=== PATIENT | female | born 1985 | race Caucasian/White ===

== ENCOUNTER 2020-07-29 23:43 | Emergency (ER) | payer OTHER ==
[~2020-07-29] VITALS: Ht 149.9 cm; Wt 50.8 kg
[2020-07-30] MEDS ORDERED: CHLORDIAZEPOXIDE HCL 10 MG CAP PO ONE (00:15)
[2020-07-30 00:17] LABS: BASOPHILS % 0.4 % (0.0-1.0); EOSINOPHILS # (AUTO) 0.1 (0.0-0.4); HEMATOCRIT 36.3 % (34.2-44.1); LYMPHOCYTES # (AUTO) 1.2 (1.0-3.2); LYMPHOCYTES % 23.8 % (18.0-39.1); MEAN CORPUSCULAR HEMOGLOBIN 29.6 pg (28-32); MEAN CORPUSCULAR HGB CONC 33.1 g/dL (31-35); MEAN CORPUSCULAR VOLUME 89.6 fL (81-99); MONOCYTES # (AUTO) 0.5 (0.2-0.8); MONOCYTES % 8.8 % (4.4-11.3); NEUTROPHILS # (AUTO) 3.3 (2.1-6.9); NEUTROPHILS % 64.8 % (38.7-80.0); PLATELET COUNT 171 x10e3/uL (140-360); RED BLOOD COUNT 4.05 x10e6/uL (3.6-5.1); RED CELL DISTRIBUTION WIDTH 13.7 % (11.7-14.4)
[2020-07-30 00:30] LABS: ALANINE AMINOTRANSFERASE 54 IU/L (0-55); ALBUMIN 3.6 g/dL (3.5-5.0); ALBUMIN/GLOBULIN RATIO 1.2 (0.8-2.0); ALKALINE PHOSPHATASE 72 IU/L (40-150); ANION GAP 22.7 mmol/L (8-16); BLOOD UREA NITROGEN < 5 mg/dL (7-26); BUN/CREATININE RATIO 8 (6-25); CALCIUM 8.6 mg/dL (8.4-10.2); CARBON DIOXIDE 19 mmol/L (22-29); CHLORIDE 98 mmol/L (98-107); CREATINE KINASE 195 IU/L (29-168); CREATININE, SERUM 0.66 mg/dL (0.57-1.11); EST GLOMERULAR FILTRATION RATE > 60 ML/MIN (60-); GLUCOSE 183 mg/dL (74-118); SODIUM 137 mmol/L (136-145)
[2020-07-30] MEDS ORDERED: CHLORDIAZEPOXIDE HCL 25 MG CAP PO ONE (00:30)
[2020-07-30] MEDS ORDERED: SODIUM CHLORIDE 0.9% 1000ML 1,000 ML IV ONE ×2 (00:30→00:45)
[2020-07-30 00:31] LABS: POTASSIUM 2.7 mmol/L (3.5-5.1)
[2020-07-30] MEDS ORDERED: POTASSIUM CHLORIDE 10MEQ EA PO ONE (00:45)
[2020-07-30] MEDS ORDERED: POTASSIUM CHLORIDE 10MEQ/100ML 100 ML IV ONE (00:45)
[2020-07-30 03:18] LABS: BLOOD UREA NITROGEN < 5 mg/dL (7-26); CALCIUM 7.2 mg/dL (8.4-10.2); CARBON DIOXIDE 25 mmol/L (22-29); CHLORIDE 108 mmol/L (98-107); CREATININE, SERUM 0.51 mg/dL (0.57-1.11); EST GLOMERULAR FILTRATION RATE > 60 ML/MIN (60-); GLUCOSE 79 mg/dL (74-118); SODIUM 142 mmol/L (136-145)
[2020-07-30 03:19] LABS: BUN/CREATININE RATIO 10 (6-25)
[2020-07-30] MEDS ORDERED: CHLORDIAZEPOXID25 MG PO (03:24)
[2020-07-30] MEDS ORDERED: ZOFRAN4 MG SL (03:24)
[2020-07-30 03:29] VITALS: BP 122/83
== END 2020-07-30 03:58 | disposition home or self-care (01) ==
LOC: EDBD 23:43 → ER 23:53
DX: F10.20 Alcohol dependence, uncomplicated (principal); R56.9 Unspecified convulsions; F32.9 Major depressive disorder, single episode, unspecified
CPT/HCPCS: 36415; 70450; 80048; 80053; 80320; 82550; 82553; 84484; 85025; 93005; 99284; J3480; J7030